=== PATIENT | male | born 1995 | race Two or more races ===

== ENCOUNTER 2021-03-01 13:51 | Inpatient (IN) | payer OTHER ==
[~2021-03-01] VITALS: Ht 170.2 cm; Wt 54.5 kg
[2021-03-01] MEDS ORDERED: SODIUM CHLORIDE 0.9% 1,000ML IVBOLUS ONE ×3 (14:30→16:00)
[2021-03-01] MEDS ORDERED: SODIUM CHLORIDE FLUSH 10ML SYR IVF ONE (14:30)
[2021-03-01] MEDS ORDERED: ANTIBIOTIC (14:33)
--- NOTE | 2021-03-01 14:33 | NUR ---
TAKING ANTIBIOTIC FOR SINUSITIS. TOOK STOOL SOFTENER/LAXATIVE AND METAMUCIL YESTERDAY. PT HERE W/ AUNT.
--- NOTE | 2021-03-01 14:34 | NUR ---
business advisor: pt from lobby to room 21 via WC
[2021-03-01] MEDS ORDERED: INSULIN REGULAR 100 UNITS/ML, 3ML VIAL IVPush ONE (15:00)
--- NOTE | 2021-03-01 15:06 | NUR ---
lab called and will be re-drawing pt
[2021-03-01 15:13] LABS: BASOPHILS % (AUTO) 1 % (0-1); EOSINOPHILS % (AUTO) 0 % (1-7); LYMPHOCYTES % (AUTO) 9 % (22-44); MEAN CORPUSCULAR HEMOGLOBIN 30.2 pg (27.5-34.5); MEAN CORPUSCULAR HGB CONC 33.8 g/dL (33.2-36.2); MONOCYTES % (AUTO) 13 % (2-9); NEUTROPHILS % (AUTO) 78 % (42-75); PLATELET COUNT 330 x10^3/uL (130-400); RED CELL DISTRIBUTION WIDTH 14.2 % (9.4-14.8)
[2021-03-01] MEDS ORDERED: INSULIN LISPRO 100 UNITS/ML, PEN ONE (15:16)
[2021-03-01 15:21] LABS: ALANINE AMINOTRANSFERASE 19 U/L (12-78); ALBUMIN 5.1 g/dL (3.4-5.0); ANION GAP 25 mmol/L (5-15); CALCIUM 10.1 mg/dL (8.5-10.1); CHLORIDE 108 mmol/L (98-107)
[2021-03-01 15:23] LABS: ALKALINE PHOSPHATASE 108 U/L (45-117); BILIRUBIN,TOTAL 0.8 mg/dL (0.2-1.0); TOTAL PROTEIN 9.5 g/dL (6.4-8.2)
[2021-03-01 15:32] LABS: O2 FLOW ROOM AIR L/min; PH, VENOUS 7.057 pH (7.320-7.420)
[2021-03-01] MEDS ORDERED: ONDANSETRON 2MG/ML, 2ML IV PRN (16:00)
[2021-03-01] MEDS ORDERED: ACETAMINOPHEN 325 MG TABLET PO PRN (16:00)
[2021-03-01] MEDS ORDERED: REGULAR INSULIN 100 UNITS in SODIUM CHLORIDE 0.9% 99 ML IV PRN (16:00)
[2021-03-01 16:10] LABS: ACETONE, SERUM Large (80mg/dL) (Negative)
[2021-03-01 16:14] LABS: MICROSCOPIC AUTO
--- NOTE | 2021-03-01 16:26 | NUR ---
THIS RN CALLED DR. COLON TO VERIFY 4L NS BOLUS TO BE GIVEN, PER DR. COLON ONLY 3L BOLUS TO BE GIVEN.
--- NOTE | 2021-03-01 16:31 | NUR ---
PT BIB AUNT VIA POV. PER PT HE HAS HAD ABD PAIN 4-7 DAYS, CONSTIPATION X 3 WKS, WEIGHT LOSS: 5 LB IN PAST WEEK. PT WAS SEEN AT , SENT HIM HERE DUE TO TACHYCARDIA. PT RESTING IN GURNEY, MEDICATED PER EMAR, MONITORING IN PLACE, NADN AT THIS TIME, PT STATES NO NEEDS, WCTM. AUNT AT BEDSIDE.
[2021-03-01] MEDS: D5%-0.45NACL+KCL 20MEQ 1,000 ML IV SCH ×2 (16:59→21:40)
[2021-03-01] MEDS: SODIUM CHLORIDE 0.9% 1,000 ML IV SCH ×2 (18:28→20:27)
[2021-03-01] MEDS ORDERED: PHENOL THROAT SPRAY BOTTLE MM PRN (20:00)
[2021-03-01] MEDS: ENOXAPARIN 40 MG/0.4 ML SQ SCH (20:27)
[2021-03-01 20:33] LABS: CALCIUM 7.9 mg/dL (8.5-10.1); CHLORIDE 122 mmol/L (98-107); CREATININE 1.05 mg/dL (0.7-1.3)
[2021-03-01 20:41] LABS: ANION GAP 20 mmol/L (5-15)
[2021-03-02 00:37] LABS: ANION GAP 8 mmol/L (5-15); CALCIUM 8.2 mg/dL (8.5-10.1); CHLORIDE 123 mmol/L (98-107); CREATININE 1.02 mg/dL (0.7-1.3)
[2021-03-02 04:52] LABS: ANION GAP 5 mmol/L (5-15); CALCIUM 8.2 mg/dL (8.5-10.1); CHLORIDE 124 mmol/L (98-107); CREATININE 0.91 mg/dL (0.7-1.3)
[2021-03-02] MEDS ORDERED: POTASSIUM CHLORIDE 40 MEQ in SODIUM CHLORIDE 0.9% 500 ML IV ONE (05:30)
[2021-03-02] MEDS: D5%-0.45NACL+KCL 20MEQ 1,000 ML IV SCH (05:31)
[2021-03-02] MEDS ORDERED: POTASSIUM CHLORIDE 20 MEQ TAB.ER.PRT PO ONE ×2 (07:00→11:30)
[2021-03-02] MEDS ORDERED: INSULIN GLARGINE 100 UNITS/ML, PEN ONE (07:39)
[2021-03-02] MEDS ORDERED: INSULIN GLARGINE 100 UNITS/ML, PEN SQ-INSULIN SCH ×2 (08:00→21:00)
[2021-03-02] MEDS: AZITHROMYCIN 250 MG TABLET PO SCH (09:03)
[2021-03-02] MEDS ORDERED: GLUCAGON 1 MG IM PRN (10:30)
[2021-03-02] MEDS ORDERED: DEXTROSE 50%, 50ML SYRINGE IVPush PRN (10:30)
[2021-03-02] MEDS ORDERED: DEXTROSE 4 GM TAB.CHEW PO PRN (10:30)
[2021-03-02 11:12] LABS: ANION GAP 11 mmol/L (5-15); CALCIUM 8.6 mg/dL (8.5-10.1); CHLORIDE 120 mmol/L (98-107); CREATININE 0.67 mg/dL (0.7-1.3)
[2021-03-02] MEDS: INSULIN LISPRO 100 UNITS/ML, PEN SQ-INSULIN SCH ×3 (11:53→20:47)
[2021-03-02 18:55] VITALS: BP 125/71
[2021-03-02] MEDS: SODIUM CHLORIDE FLUSH 10ML SYR IVF SCH (20:48)
[2021-03-02] MEDS: ENOXAPARIN 40 MG/0.4 ML SQ SCH (20:48)
[2021-03-03 00:30] VITALS: BP 126/66
[2021-03-03 06:09] LABS: BASOPHILS % (AUTO) 1 % (0-1); EOSINOPHILS % (AUTO) 2 % (1-7); LYMPHOCYTES % (AUTO) 32 % (22-44); MEAN CORPUSCULAR HEMOGLOBIN 30.2 pg (27.5-34.5); MEAN CORPUSCULAR HGB CONC 35.5 g/dL (33.2-36.2); MEAN PLATELET VOLUME 6.5 fL (7.4-10.4); MONOCYTES % (AUTO) 12 % (2-9); NEUTROPHILS % (AUTO) 54 % (42-75); PLATELET COUNT 144 x10^3/uL (130-400); RED BLOOD COUNT 4.43 x10^6/uL (4.38-5.82); RED CELL DISTRIBUTION WIDTH 13.7 % (9.4-14.8)
[2021-03-03 06:21] LABS: ANION GAP 10 mmol/L (5-15); CALCIUM 8.6 mg/dL (8.5-10.1); CHLORIDE 113 mmol/L (98-107); CREATININE 0.62 mg/dL (0.7-1.3)
[2021-03-03] MEDS ORDERED: POTASSIUM CHLORIDE 20 MEQ in SODIUM CHLORIDE 0.9% 250 ML IV ONE (06:30)
[2021-03-03] MEDS ORDERED: MAGNESIUM SULFATE PMX 2GM/50ML 50 ML IV ONE (07:00)
[2021-03-03] MEDS: INSULIN LISPRO 100 UNITS/ML, PEN SQ-INSULIN SCH ×4 (07:00→21:19)
[2021-03-03 07:29] VITALS: BP 105/66
[2021-03-03] MEDS: AZITHROMYCIN 250 MG TABLET PO SCH (08:01)
[2021-03-03] MEDS: POTASSIUM CHLORIDE 20 MEQ TAB.ER.PRT PO SCH ×2 (08:01→16:40)
[2021-03-03] MEDS: INSULIN GLARGINE 100 UNITS/ML, PEN SQ-INSULIN SCH ×2 (08:02→21:18)
[2021-03-03] MEDS: SODIUM CHLORIDE FLUSH 10ML SYR IVF SCH ×2 (08:03→21:19)
[2021-03-03 13:58] VITALS: BP 108/65
[2021-03-03 19:10] VITALS: BP 99/63
[2021-03-03] MEDS: ENOXAPARIN 40 MG/0.4 ML SQ SCH (21:00)
[2021-03-04 00:52] VITALS: BP 110/62
[2021-03-04 05:51] LABS: ANION GAP 4 mmol/L (5-15); CALCIUM 8.5 mg/dL (8.5-10.1); CHLORIDE 108 mmol/L (98-107); CREATININE 0.47 mg/dL (0.7-1.3)
[2021-03-04 06:56] VITALS: BP 105/77
[2021-03-04] MEDS: INSULIN LISPRO 100 UNITS/ML, PEN SQ-INSULIN SCH (07:00)
[2021-03-04] MEDS: INSULIN GLARGINE 100 UNITS/ML, PEN SQ-INSULIN SCH (08:29)
[2021-03-04] MEDS: POTASSIUM CHLORIDE 20 MEQ TAB.ER.PRT PO SCH (08:29)
[2021-03-04] MEDS: SODIUM CHLORIDE FLUSH 10ML SYR IVF SCH (08:31)
[2021-03-04] MEDS ORDERED: INSU100I13 SQ-INSULIN (08:39)
[2021-03-04] MEDS ORDERED: INSU100I11 SQ-INSULIN (08:39)
[2021-03-04] MEDS ORDERED: DEXT4TAB31 PO (08:39)
[2021-03-04] MEDS ORDERED: POTA20TA6 PO (08:39)
== END 2021-03-04 10:26 | disposition home or self-care (01) | DRG 637 ==
LOC: ED 15:35 → EDIP 15:43 → ED 16:00 → CCU 16:55 → 3N 03-02 16:34
PROVIDERS: ADMIT Hospitalist; ATTEND Hospitalist
DX: E10.10 Type 1 diabetes mellitus with ketoacidosis without coma (principal); N17.0 Acute kidney failure with tubular necrosis; K59.00 Constipation, unspecified
CPT/HCPCS: 36415; 71045; 80048; 80053; 81001; 82010; 82803; 82962; 83036; 83605; 83690; 83735; 84100; 84443; 85025; 87040; 87081; 87880; 93005; 96361; 96374; G0378; J1650; J3480; J1815; J3475; J7030; J7040; J7050